=== PATIENT | female | born 1970 | race Caucasian/White ===

== ENCOUNTER → 2017-02-03 | Outpatient (CLI) | payer OTHER ==
[~2017-02-03] MED LIST: GADOBUTROL 7.5 MMOL/7.5 ML VIAL ONE
== END | disposition home or self-care (01) ==
LOC: CFH 14:07
PROVIDERS: ATTEND Internal Medicine
DX: M47.892 Other spondylosis, cervical region (principal); M51.44 Schmorl's nodes, thoracic region; M25.78 Osteophyte, vertebrae; E03.9 Hypothyroidism, unspecified; D64.9 Anemia, unspecified
CPT/HCPCS: 70553; 72156; A9585

== ENCOUNTER 2017-02-19 05:46 | Day surgery (SDC) | payer OTHER ==
[2017-02-19] MEDS ORDERED: LIDOCAINE 1%, 20ML ONE (08:17)
[2017-02-24 12:07] LABS: ALBUMIN CSF 22 mg/dL (11-48); ALBUMIN SERUM 4.2 g/dL (3.5-5.5); CSF IGG INDEX 0.5 (0.0-0.7); CSF/SERUM ALBUMIN INDEX 5 (0-8); IGG SERUM 867 mg/dL (700-1600); IGG SYNTHESIS RATE CSF -2.4 mg/day (-9.9 TO +3.3); MYELIN BASIC PROTEIN CSF 1.9 ng/mL (0.0-1.2)
== END 2017-02-19 12:05 ==
LOC: OUT 05:46
PROVIDERS: ATTEND Physician Assistant
DX: M79.622 Pain in left upper arm (principal); M79.621 Pain in right upper arm; M79.606 Pain in leg, unspecified; D64.9 Anemia, unspecified; E03.9 Hypothyroidism, unspecified
CPT/HCPCS: 36415; 62270; 82040; 82042; 82784; 83873; 86645; 86695; 86696; 86762; 86777; 86778; J3490

== ENCOUNTER → 2017-03-23 | Outpatient (CLI) | payer OTHER | END | disposition home or self-care (01) | LOC: CFH 15:55 | PROVIDERS: ATTEND Physician Assistant | DX: I34.0 Nonrheumatic mitral (valve) insufficiency (principal); E03.9 Hypothyroidism, unspecified; Z82.0 Family history of epilepsy and other diseases of the nervous system | CPT/HCPCS: 93306 ==

== ENCOUNTER → 2017-06-12 | Outpatient (CLI) | payer OTHER | LOC: CARD 09:33 | PROVIDERS: ATTEND Internal Medicine | DX: G62.9 Polyneuropathy, unspecified (principal); R01.1 Cardiac murmur, unspecified; D64.9 Anemia, unspecified; E03.9 Hypothyroidism, unspecified; R20.2 Paresthesia of skin; M54.2 Cervicalgia; R51 Headache; R07.9 Chest pain, unspecified; Z82.0 Family history of epilepsy and other diseases of the nervous system | CPT/HCPCS: 95886; 95908 ==

== ENCOUNTER 2019-04-07 16:01 | Outpatient (CLI) | payer BC | END 2019-04-07 23:59 | disposition home or self-care (01) | LOC: CFH 16:01 | PROVIDERS: ATTEND Obstetrics & Gynecology | DX: Z12.31 Encounter for screening mammogram for malignant neoplasm of breast (principal) | CPT/HCPCS: 77067 ==

== ENCOUNTER → 2020-04-13 | Outpatient (CLI) | payer BC, OTHER | END | disposition home or self-care (01) | LOC: CFH 10:18 | PROVIDERS: ATTEND Obstetrics & Gynecology | DX: Z12.31 Encounter for screening mammogram for malignant neoplasm of breast (principal) | CPT/HCPCS: 77067 ==

== ENCOUNTER → 2020-05-07 | Outpatient (CLI) | payer OTHER | END | disposition home or self-care (01) | LOC: CFH 15:26 | PROVIDERS: ATTEND Obstetrics & Gynecology | DX: N64.89 Other specified disorders of breast (principal) | CPT/HCPCS: 77065; G0279 ==